=== PATIENT | male | born 1990 | race Caucasian/White ===

== ENCOUNTER → 2021-04-02 | Outpatient (CLI) | payer BC ==
--- NOTE | 2021-04-02 19:03 | Diagnostic Imaging Report ---
PROCEDURE: CT right upper extremity without contrast. TECHNIQUE: Multiple contiguous axial images were obtained through the right upper extremity without the use of intravenous contrast. Sagittal and coronal reformations were then performed. Auto Exposure Controls were utilized during the CT exam to meet ALARA standards for radiation dose reduction. INDICATION: Displaced fracture. COMPARISON: None. FINDINGS: Mildly displaced fracture through the proximal right scaphoid. There is sclerosis that has developed along both sides of the fracture line. No other fractures are identified. No widening of the scapholunate interval. No fluid collections or radiopaque foreign bodies. IMPRESSION: Mildly displaced fracture through the proximal right scaphoid with sclerosis along both sides of the fracture line suspicious for nonunion. Dictated by: Dictated on workstation # [id number]
== END ==
LOC: RAD 16:45
PROVIDERS: ATTEND Family Medicine Sports Medicine
DX: S62.011A Displaced fracture of distal pole of navicular [scaphoid] bone of right wrist, initial encounter for closed fracture (principal); X58.XXXA Exposure to other specified factors, initial encounter
CPT/HCPCS: 73200